=== PATIENT | female | born 1995 | race Caucasian/White ===

== ENCOUNTER 2016-08-01 02:05 | Emergency (ER) | payer OTHER ==
[~2016-08-01] VITALS: Ht 154.9 cm; Wt 37.6 kg
[2016-08-01 02:07] VITALS: BP 112/70
--- NOTE | 2016-08-01 02:34 | NUR ---
TO ER BED 3
--- NOTE | 2016-08-01 02:35 | NUR ---
Patient being evaluated by physician at bedside.
--- NOTE | 2016-08-01 02:35 | NUR ---
21 Y/O F W/C/O LOWER AND UPPER ABD PAIN, FOR 2-3 DAYS, VOMITING, 14 WEEKS, LMP 04/06/16. DENIES ANY BLEEDING OR VAGINAL DISCHARGE.
[2016-08-01 02:49] LABS: BASOPHILS # (AUTO) 0.1 K/uL (0.00-0.22); BASOPHILS % (AUTO) 0.7 % (0.0-2.0); EOSINOPHILS # (AUTO) 0.2 K/uL (0-0.4); EOSINOPHILS % (AUTO) 1.8 % (0.0-4.0); HEMATOCRIT 34.2 % (36-48); HEMOGLOBIN 11.2 g/dL (12.0-16.0); LYMPHOCYTES # (AUTO) 1.4 K/uL (2.5-16.5); MEAN CORPUSCULAR HEMOGLOBIN 28 pg (27-31); MEAN CORPUSCULAR HGB CONC 33 g/dL (33-37); MEAN CORPUSCULAR VOLUME 85 fL (80-94); MONOCYTES # (AUTO) 0.6 K/uL (0.8-1.0); MONOCYTES % (AUTO) 7.3 % (1.7-9.3); NEUTROPHILS # (AUTO) 6.4 K/uL (1.8-7.7); NEUTROPHILS % (AUTO) 74.2 % (42.2-75.2); PLATELET COUNT (AUTO) 222 K/uL (140-450); RED BLOOD CELL COUNT(AUTO) 4.01 MIL/uL (4.20-5.40); RED CELL DISTRIBUTION WIDTH 14.3 % (11.6-13.7); WHITE BLOOD COUNT (AUTO) 8.7 K/uL (4.5-11.0)
[2016-08-01 03:03] LABS: ANION GAP 13.5 (8-16); CALCIUM 8.5 mg/dL (8.5-10.1); CARBON DIOXIDE 25.2 mmol/L (21-32); CREATININE 0.4 mg/dL (0.6-1.3); POTASSIUM 3.7 mmol/L (3.5-5.1)
[2016-08-01 03:08] LABS: APPEARANCE,URINE CLEAR (CLEAR); BILIRUBIN,URINE NEGATIVE (NEGATIVE); BLOOD, URINE NEGATIVE (NEGATIVE); COLOR,URINE YELLOW (YELLOW); LEUKOCYTE ESTERASE ,URINE NEGATIVE (NEGATIVE); NITRITE, URINE NEGATIVE (NEGATIVE); PROTEIN,URINE NEGATIVE (NEGATIVE); UGLUCOSE NEGATIVE (NEGATIVE); UROBILINOGEN,URINE 0.2 EU/dL (0.2 - 1)
[2016-08-01 03:10] LABS: BACTERIA,URINE RARE /HPF (None Seen); RBC,URINE 0-3 /HPF (0-5); WBC,URINE 0-3 /HPF (0-5)
[2016-08-01 03:11] LABS: ALBUMIN 2.8 g/dL (3.4-5.0); TOTAL BILIRUBIN 0.1 mg/dL (0.0-1.0); TOTAL PROTEIN, SERUM 7.2 g/dL (6.4-8.2)
--- NOTE | 2016-08-01 05:00 | NUR ---
Pt states to be in pain, tylenol offered for pain for the second time but pt refused any pain meds. Explained to pt that tylenol was safe for baby but pt still refused pain med. ER MD will be notify.
[2016-08-01 05:45] VITALS: BP 109/67
--- NOTE | 2016-08-01 05:45 | NUR ---
Patient discharged with v/s stable. Written and verbal after care instructions given and explained. Patient verbalized understanding. Ambulatory with steady gait. All questions addressed prior to discharge. Advised to follow up with OBGYN OR RETURN TO ER IF CONDITION WORSENS.
== END 2016-08-01 05:45 | disposition home or self-care (01) ==
LOC: MED 02:05
DX: O23.42 Unspecified infection of urinary tract in pregnancy, second trimester (principal); Z3A.16 16 weeks gestation of pregnancy
CPT/HCPCS: 36415; 76805; 80053; 81001; 81025; 84702; 85025; 86900; 86901; 99285

== ENCOUNTER 2016-11-02 19:50 | Observation (INO) | payer OTHER ==
[~2016-11-02] VITALS: Ht 160 cm; Wt 45.8 kg
[2016-11-02 20:55] VITALS: BP 110/57
[2016-11-02] MEDS ORDERED: PREN-546 PO (21:27)
[2016-11-02] MEDS ORDERED: IRON65TA11 PO (21:27)
[2016-11-02] MEDS ORDERED: MORPHINE SULFATE 2 MG/ML SYR IVP PRN (23:15)
[2016-11-02] MEDS: LACTATED RINGERS 1,000 ML IV SCH (23:35)
[2016-11-02] MEDS: TERBUTALINE 1 MG/ML VIAL SUBQ SCH (23:42)
[2016-11-02] MEDS ORDERED: TERBUTALINE 1 MG/ML VIAL SUBQ ONE (23:47)
[2016-11-03] MEDS: TERBUTALINE 1 MG/ML VIAL SUBQ SCH (00:32)
[2016-11-03] MEDS ORDERED: MORPHINE SULFATE 10 MG/ML SYR ONE (01:52)
[2016-11-03] MEDS: LACTATED RINGERS 1,000 ML IV SCH (04:18)
[2016-11-03 07:03] VITALS: BP 97/59
--- NOTE | 2016-11-03 09:58 | NUR ---
PATIENT HAS BEEN SCREENED AND CATEGORIZED HIGH NUTRITION RISK. PATIENT WILL BE SEEN WITHIN 1-2 DAYS OF ADMISSION. 11/03/16-11/04/[address]
== END 2016-11-03 14:21 | disposition home or self-care (01) ==
LOC: MLD 19:50 → UNDOADMOB 19:50 → MLD 21:18
PROVIDERS: ADMIT Obstetrics & Gynecology; ATTEND Obstetrics & Gynecology
DX: O32.1XX0 Maternal care for breech presentation, not applicable or unspecified (principal); O26.893 Other specified pregnancy related conditions, third trimester; R10.9 Unspecified abdominal pain; M54.5 Low back pain; Z3A.31 31 weeks gestation of pregnancy
CPT/HCPCS: 76805; 96361; 96372; 96374; G0378; J2270; J3105; J7120; Q0092

== ENCOUNTER 2016-11-12 19:35 | Observation (INO) | payer OTHER ==
[~2016-11-12] VITALS: Ht 147.3 cm; Wt 46.7 kg
[~2016-11-12 19:35] MED LIST: IRON65TA11 PO; PREN-546 PO
[2016-11-12 21:42] VITALS: BP 104/55
[2016-11-12] MEDS ORDERED: LACTATED RINGERS 1,000 ML IV SCH (23:15)
[2016-11-12] MEDS ORDERED: NALBUPHINE 10 MG/ML AMP IVP PRN (23:15)
[2016-11-12] MEDS ORDERED: NALBUPHINE HYDROCHLORIDE 10 MG/ML VIAL ONE (23:27)
== END 2016-11-13 07:50 | disposition home or self-care (01) ==
LOC: MED 19:35 → EDSTATUS 20:11 → MLD 20:15
PROVIDERS: ADMIT Obstetrics & Gynecology; ATTEND Obstetrics & Gynecology
DX: O26.893 Other specified pregnancy related conditions, third trimester (principal); R07.89 Other chest pain; Z3A.00 Weeks of gestation of pregnancy not specified
CPT/HCPCS: 76815; 93005; G0378; J2300; J7120

== ENCOUNTER 2016-11-21 22:10 | Observation (INO) | payer OTHER ==
[~2016-11-21] VITALS: Ht 149.9 cm; Wt 48.5 kg
[~2016-11-21 22:10] MED LIST changes: -IRON65TA11 PO; +NATURAL IRON65 MG PO; -PREN-546 PO; +PRENATAL VITAMI1 TA2 PO
[2016-11-21] MEDS ORDERED: TERBUTALINE 1 MG/ML VIAL SUBQ ONE (22:35)
[2016-11-21] MEDS: TERBUTALINE 1 MG/ML VIAL SUBQ SCH ×2 (23:08→23:28)
[2016-11-21] MEDS ORDERED: MORPHINE SULFATE 4 MG/ML SYR IM PRN (23:30)
[2016-11-21] MEDS ORDERED: LACTATED RINGERS 1,000 ML IV SCH (23:50)
--- NOTE | 2016-11-22 08:15 | NUR ---
PATIENT HAS BEEN SCREENED AND CATEGORIZED LOW NUTRITION RISK. PATIENT WILL BE SEEN WITHIN 7 DAYS OF ADMISSION. 11/28/[address]
== END 2016-11-22 08:49 | disposition home or self-care (01) ==
LOC: MLD 22:10
PROVIDERS: ADMIT Obstetrics & Gynecology; ATTEND Obstetrics & Gynecology
DX: O26.893 Other specified pregnancy related conditions, third trimester (principal); R10.9 Unspecified abdominal pain; Z3A.34 34 weeks gestation of pregnancy
CPT/HCPCS: 76805; 96360; 96361; 96372; G0378; J3105; J7120; Q0092

== ENCOUNTER 2016-12-30 18:55 | Inpatient (IN) | payer OTHER ==
[~2016-12-30] VITALS: Ht 152.4 cm; Wt 51.3 kg
[~2016-12-30 18:55] MED LIST changes: +FERR-252 PO; -NATURAL IRON65 MG PO; +PREN-546 PO; -PRENATAL VITAMI1 TA2 PO
[2016-12-30 19:47] VITALS: BP 118/58
[2016-12-30] MEDS: LACTATED RINGERS 1,000 ML IV SCH (20:32)
[2016-12-31] MEDS: LACTATED RINGERS 1,000 ML IV SCH ×3 (03:32→18:46)
[2016-12-31] MEDS ORDERED: METHYLERGONOVINE 0.2 MG/ML AMP IM PRN (07:35)
[2016-12-31] MEDS ORDERED: NALBUPHINE HYDROCHLORIDE 10 MG/ML VIAL IVP PRN (07:35)
[2016-12-31] MEDS ORDERED: CARBOPROST 250 MCG/ML AMP IM PRN (07:35)
[2016-12-31] MEDS ORDERED: PROMETHAZINE 25 MG/ML VIAL IVP PRN (07:35)
[2016-12-31] MEDS ORDERED: OXYTOCIN 10 UNITS/ML VIAL IM SCH (07:35)
[2016-12-31] MEDS ORDERED: PROMETHAZINE 25 MG/ML VIAL ONE ×2 (07:38→10:38)
[2016-12-31] MEDS ORDERED: NALBUPHINE HYDROCHLORIDE 10 MG/ML VIAL ONE ×2 (07:38→10:38)
[2016-12-31 08:04] LABS: BASOPHILS # (AUTO) 0.1 K/uL (0.00-0.22); BASOPHILS % (AUTO) 1.1 % (0.0-2.0); EOSINOPHILS # (AUTO) 0.1 K/uL (0-0.4); EOSINOPHILS % (AUTO) 1.2 % (0.0-4.0); HEMATOCRIT 33.3 % (36-48); HEMOGLOBIN 10.6 g/dL (12.0-16.0); LYMPHOCYTES # (AUTO) 1.5 K/uL (2.5-16.5); LYMPHOCYTES % (AUTO) 14.9 % (20.5-51.1); MEAN CORPUSCULAR HEMOGLOBIN 27 pg (27-31); MEAN CORPUSCULAR HGB CONC 32 g/dL (33-37); MEAN CORPUSCULAR VOLUME 84 fL (80-94); MONOCYTES # (AUTO) 0.6 K/uL (0.8-1.0); MONOCYTES % (AUTO) 6.1 % (1.7-9.3); NEUTROPHILS # (AUTO) 7.8 K/uL (1.8-7.7); NEUTROPHILS % (AUTO) 76.7 % (42.2-75.2); PLATELET COUNT (AUTO) 210 K/uL (140-450); RED BLOOD CELL COUNT(AUTO) 3.97 MIL/uL (4.20-5.40); RED CELL DISTRIBUTION WIDTH 17.7 % (11.6-13.7); WHITE BLOOD COUNT (AUTO) 10.1 K/uL (4.5-11.0)
[2016-12-31 08:15] LABS: ANION GAP 7.6 (8-16); CARBON DIOXIDE 26.4 mmol/L (21-32); CREATININE 0.5 mg/dL (0.6-1.3)
[2016-12-31 08:23] LABS: ALBUMIN 2.2 g/dL (3.4-5.0); TOTAL BILIRUBIN 0.2 mg/dL (0.0-1.0)
[2016-12-31] MEDS ORDERED: AMPICILLIN 2,000 MG in NACL 0.9% 100 ML IV ONE (09:10)
[2016-12-31] MEDS ORDERED: AMPICILLIN 2,000 MG VIAL ONE (10:03)
[2016-12-31] MEDS ORDERED: OXYTOCIN 20 UNITS/LR PREMIX 1,000 ML IV ONE (10:17)
[2016-12-31] MEDS ORDERED: AMPICILLIN 1,000 MG in NACL 0.9% 50 ML IV SCH (12:00)
[2016-12-31] MEDS ORDERED: ROPIVACAINE 0.2%/NS PREMIX 250 ML EPI ONE (12:12)
[2016-12-31] MEDS: AMPICILLIN 1,000 MG in NACL 0.9% 50 ML IV SCH ×2 (14:51→18:46)
[2016-12-31] MEDS ORDERED: AMPICILLIN 1,000 MG VIAL ONE ×2 (14:56→18:50)
[2016-12-31] MEDS ORDERED: OXYTOCIN 10 UNITS/ML VIAL ONE (18:04)
[2017-01-01] MEDS ORDERED: HYDROcodone/APAP 5/325 MG 1 TAB TAB PO PRN (15:30)
[2017-01-01] MEDS ORDERED: SODIUM PHOSPHATE 118 ML ENEM RC PRN (15:30)
[2017-01-01] MEDS ORDERED: IBUPROFEN 800 MG TAB PO PRN (15:30)
[2017-01-01] MEDS ORDERED: oxyCODONE/APAP 5/325 MG 1 TAB TAB PO PRN (15:30)
[2017-01-01] MEDS ORDERED: INFLUENZA VIRUS VACCINE QUAD 0.5 ML SYR IMVAC SCH (15:30)
[2017-01-01] MEDS ORDERED: MEASLES, MUMPS, AND RUBELLA 1 VIAL SQVAC PRN (15:35)
[2017-01-01] MEDS ORDERED: DOCUSATE SOD/SENNA 50/8.6 MG 1 TAB PO PRN (15:40)
== END 2017-01-02 14:40 | disposition home or self-care (01) | DRG 560 ==
LOC: MLD 18:55 → OBSVTOIN 12-31 07:43 → MFCC 01-01
PROVIDERS: ADMIT Obstetrics & Gynecology; ATTEND Obstetrics & Gynecology
PROC: 10D07Z6 Extraction of Products of Conception, Vacuum, Via Natural or Artificial Opening (ICD-10-PCS; principal; 2016-12-31)
PROC: 0W8NXZZ Division of Female Perineum, External Approach (ICD-10-PCS; 2016-12-31)
PROC: 3E0S3BZ Introduction of Anesthetic Agent into Epidural Space, Percutaneous Approach (ICD-10-PCS; 2016-12-31)
PROC: 00HU33Z Insertion of Infusion Device into Spinal Canal, Percutaneous Approach (ICD-10-PCS; 2016-12-31)
DX: O75.81 Maternal exhaustion complicating labor and delivery (principal); Z37.0 Single live birth; Z3A.38 38 weeks gestation of pregnancy; O66.5 Attempted application of vacuum extractor and forceps
CPT/HCPCS: G0378 ×13; 36415; 51702; 80053; 81000; 85025; 86592; 86886; 86900; 86901; J0290; J2300; J2550; J2590; J2795; J7120